=== PATIENT | male | born 1980 | race Caucasian/White ===

== ENCOUNTER 2017-12-18 22:50 | Emergency (ER) | payer OTHER ==
[~2017-12-18] VITALS: Ht 167.6 cm; Wt 100.6 kg
[2017-12-18 23:01] VITALS: BP 131/79; TEMP 98
[2017-12-19 00:22] LABS: ALBUMIN 3.7 gm/dL (3.5-5.0); BILIRUBIN,TOTAL 0.6 mg/dL (0.0-1.0); C-REACTIVE PROTEIN 2.3 mg/dL (0.0-0.9); CALCIUM 9.1 mg/dL (8.4-10.2); CREATININE, serum 1.12 mg/dL (0.66-1.25); POTASSIUM 3.9 mmol/L (3.4-5.0); TOTAL PROTEIN 7.2 gm/dL (6.4-8.2)
[2017-12-19 00:23] LABS: BASO % 0.5 % (0.0-2.0); EOS # 0.2 (0.0-0.7); GRAN # 5.7 (1.4-6.5); GRAN % 66.8 % (42.2-75.2); HEMATOCRIT 41.6 % (42.0-52.0); HEMOGLOBIN 14.4 g/dl (13.5-18.0); LYMPH # 1.8 (1.2-3.4); LYMPH % 20.8 % (20.0-51.0); MEAN CELL VOLUME 91 fl (80.0-100.0); MEAN CORPUSCULAR HEMOGLOBIN 31 pg (27.0-31.0); MEAN CORPUSCULAR HGB CONC 35 g/dl (33.0-37.0); MEAN PLATELET VOLUME 10.7 fl (7.4-10.4); MONO # 0.8 (0.1-0.6); MONO % 9.4 % (1.7-9.3); PLATELET COUNT 164 K/mm3 (130-400); RED BLOOD COUNT 4.58 M/mm3 (4.20-5.60); REDCELL DISTRIBUTION WIDTH-CV 13.2 % (11.5-14.5)
[2017-12-19 02:12] LABS: SYNOVIAL FL. MONONUCLEAR 23.7 % (0-75); SYNOVIAL FLUID RBC 12000 /mm3 (0-0); SYNOVIAL FLUID WBC 11789 /mm3 (200-600)
[2017-12-19] MEDS ORDERED: MOBIC 7.5MG7.5 MG PO (02:30)
[2017-12-19] MEDS ORDERED: CRUTCHES MC ×2 (02:38)
[2017-12-19 02:39] LABS: SYNOVIAL FLUID COLOR AMBER
[2017-12-19 02:40] LABS: SYNOVIAL FLUID APPEARANCE CLOUDY
[2017-12-19 02:56] VITALS: PULSE 65
== END 2017-12-19 02:57 | disposition home or self-care (01) ==
LOC: COL.ER 22:50
PROVIDERS: Emergency Medicine; Nurse Practitioner
DX: M25.461 Effusion, right knee (principal)